=== PATIENT | male | born 1965 | race Caucasian/White ===

== ENCOUNTER 2018-10-10 21:51 | Observation (INO) | payer OTHER | END 2018-10-11 14:00 | disposition home or self-care (01) | LOC: MED SURG 10-11 02:04 → ED 21:51 ==

== ENCOUNTER 2022-05-07 05:52 | Day surgery (SDC) | payer OTHER ==
[2022-05-07] MEDS ORDERED: Lactated Ringers 1,000 ML IV SCH (06:30)
[2022-05-07] MEDS ORDERED: DIPRIVAN 200 MG/20 ML IV ONE ×3 (07:53→08:18)
[2022-05-07] MEDS ORDERED: Xylocaine-Mpf 2% 5 Ml Vial ONE (07:53)
--- NOTE | 2022-05-07 08:51 | OP ---
SURGERY DATE/TIME: 05/07/2022 0758 PREOPERATIVE DIAGNOSES: 1) Screening colon exam and vomiting blood. 2) Screening colon exam. 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 2) Normal colon. PROCEDURES: 1) Esophagogastroduodenoscopy. 2) Colonoscopy. SURGEON: Dr. Scott Calero. ANESTHESIA: Medications were given by the anesthesia department. HISTORY: The patient is a 57-year-old white male patient who presents for a screening colonoscopy. The patient reports that during his prep however he got nauseated and started vomiting. He reports towards the end of the vomiting he vomited what looked like blood. He also reports it looking like coffee ground emesis material coming out his bottom as well towards the end of the prep. The patient was felt the need to have endoscopic evaluation for screening colon exam but due to the presence of his vomiting of blood the patient was felt the need to have endoscopic evaluation upper GI tract as well. The patient was appraised of the risks of the procedure including the risk of perforation, phlebitis, untoward reaction to medication, bleeding and missed lesions. The patient verbalized his understanding and desired to have the procedure performed. DESCRIPTION OF PROCEDURE: The patient was given the medications by the anesthesia department. He had continuous pulse oximetry, ECG monitoring and intermittent blood pressure monitoring. He was placed in the left lateral decubitus position. A bite block was placed. The flexible Olympus gastroscope was used to intubate the oropharynx. A view of the larynx was obtained and was normal. The scope was easily introduced in the esophagus which appeared to be normal to the gastroesophageal junction where there appeared to be a small area of what was most likely a Solange-Montes tear without any active bleeding at this time. The scope was passed into the stomach where normal gastric rugal folds were seen and these distended nicely with insufflation of air. The scope was passed along the greater curvature of the stomach to the antrum. The pylorus encountered and intubated. The duodenum inspected and found to be normal. The scope is withdrawn towards the stomach. Again, retroflex view of the lesser curvature, fundus and cardia regions of the stomach appeared to be normal. The scope was then withdrawn from the patient. Careful inspection of the gastroesophageal junction again revealed no bleeding and attempts were made at photographing what appeared to be a Solange-Montes tear. The scope was then removed from the patient. Next, a digital rectal examination was performed and revealed normal anal sphincter tone and no masses. The flexible Olympus pediatric colonoscope was used to intubate the rectum. A view of the colon was developed sequentially to the cecum. Upon insertion and withdrawal, including a retroflex view in the rectum, no mucosal lesions were noted. There was noted to be large amounts of bubbles throughout the colon which we used simethicone with water mixed to improve our observation and there appeared to be noted digested blood in small amounts noted through the colon. The patient was taken back to the recovery room in good condition.
[2022-05-07 09:25] VITALS: PULSE 60
[2022-05-07 09:27] VITALS: BP 126/75; O2SAT 98
== END 2022-05-07 09:20 | disposition home or self-care (01) ==
LOC: SDC 05:52
PROVIDERS: ATTEND Family Medicine
DX: Z12.11 Encounter for screening for malignant neoplasm of colon (principal); K22.6 Gastro-esophageal laceration-hemorrhage syndrome
CPT/HCPCS: J2704

== ENCOUNTER 2024-03-15 20:40 | Emergency (ER) | payer OTHER ==
[2024-03-15 20:52] VITALS: TEMP 98.6
[2024-03-15] MEDS ORDERED: DUONEB 0.5-3 MG/3 ml Neb IH ONE (21:05)
[2024-03-15 21:10] LABS: Absolute Neutrophil Ct (ANC) 5.54 x10^3/uL (1.78-5.38); BASOPHIL % 0.5 % (0.2-1.2); Basophil (Absolute #) 0.04 x10^3/uL (0.01-0.08); Eosinophil % 5.3 % (0.8-7.0); Eosinophil (Absolute #) 0.43 x10^3/uL (0.04-0.54); Hematocrit 46.1 % (40.1-51.0); Hemoglobin 15.5 g/dL (13.7-17.5); IMMATURE GRAN # 0.02 x10^3u/L (0.001-0.031); IMMATURE GRAN % 0.2 % (0.001-0.429); Lymphocyte (Absolute #) 1.34 x10^3/uL (1.32-3.57); Lymphocytes % 16.5 % (21.8-53.1); Mean Cell Volume 95.8 fL (79.0-92.2); Mean Corpuscular Hemoglobin 32.2 pg (25.7-32.2); Mean Corpuscular Hgb Concent. 33.6 g/dL (32.3-36.5); Mean Platelet Volume 10.1 fL (9.4-12.4); Monocyte (Absolute #) 0.73 x10^3/uL (0.30-0.82); Neutrophil % 68.5 % (34.0-67.9); Platelet Count 210 x10^3/uL (163-337); Red Blood Count 4.81 x10^6/uL (4.63-6.08); Red Cell Distribution Width 11.9 % (11.6-14.4); White Blood Count 8.1 x10^3/uL (4.23-9.07)
[2024-03-15] MEDS: DUONEB 0.5-3 MG/3 ml Neb IH ONE (21:20)
[2024-03-15 21:34] LABS: ALBUMIN 4.6 g/dL (3.5-5.0); ANION GAP 14.2 MEQ/L (5-15); BILIRUBIN,TOTAL 0.5 mg/dL (0.2-1.3); Calcium 10.3 mg/dL (8.4-10.2); Creatinine 1 0.93 mg/dL (0.66-1.25); EST GLOMERULAR FILTRATION RATE 96.4 ML/MIN; Total Protein 7.7 g/dL (6.3-8.2)
--- NOTE | 2024-03-15 22:50 | ERPHSYRPT ---
- History of Present Illness Time Seen by Provider: 03/15/24 20:41 Source: patient Exam Limitations: no limitations Patient Subjective Stated Complaint: shortness of breath since tuesday that has gotten worse. pt recently got discharged from [facility] after getting a new pacemaker replaced. Triage Nursing Assessment: pt ambulatory to bed by sef with steady gait, skin pwd, pt alert and oriented x3, pt c/o shortness of breath after getting discharged from the hospital on tuesday, pt states the shortness of breath has gotten worse, upon arrival pt had slight labored breathing but breathing returned to normal during triage, lung sounds clear and equal. incision site for pacemaker replacement clean and dry with no signs of reddness, afebrile, pt c/o sore throat when patient inhales. Physician History: 58 years old male with history of sick sinus syndrome with pacemaker which is replaced 3 days ago at [facility] by Dr. Spencer presented to the ER with increasing shortness of breath since discharge and substernal chest pain. Patient reports over the course of couple of days it has been getting worse and he cannot lie flat because of moderate to severe pain in the center of the chest and some shortness of breath especially hurts to take a deep breath. Shortness of breath also gets worse with exertion. Has minimal nonproductive cough. Denies any fever or chills. Allergies/Adverse Reactions: No Known Drug Allergies Allergy (Verified 03/15/24 20:42) Home Medications: No Reportable Medications [No Reported Medications] 03/15/24 [History] Hx Tetanus, Diphtheria Vaccination/Date Given: Yes Hx Influenza Vaccination/Date Given: No Hx Pneumococcal Vaccination/Date Given: No Travel Risk - International Travel Have you traveled outside of the country in past 3 weeks: No - Emerging Infectious Disease Are you exhibiting symptoms associated with any current EIDs: Yes Symptoms: Shortness of Breath - Review of Systems Constitutional: No Symptoms Eyes: No Symptoms Ears, Nose, & Throat: No Symptoms Respiratory: Cough, Dyspnea, Dyspnea on Exertion ([place]) Cardiac: Chest Pain Abdominal/Gastrointestinal: No Symptoms Genitourinary Symptoms: No Symptoms Musculoskeletal: No Symptoms Skin: No Symptoms Neurological: No Symptoms Endocrine: No Symptoms Hematologic/Lymphatic: No Symptoms Immunological/Allergic: No Symptoms - Past Medical History Pertinent Past Medical History: Yes Neurological History: No Pertinent History ENT History: Cataracts Cardiac History: Arrhythmia Respiratory History: Other Endocrine Medical History: No Pertinent History Musculoskeletal History: No Pertinent History GI Medical History: GERD History: No Pertinent History Psycho-Social History: No Pertinent History Male Reproductive Disorders: No Pertinent History Other Medical History: hx sarcoidosis, pacemaker - Past Surgical History Past Surgical History: Yes Neuro Surgical History: No Pertinent History Cardiac: Pacemaker Respiratory: Other Gastrointestinal: Appendectomy Genitourinary: No Pertinent History Musculoskeletal: No Pertinent History Male Surgical History: No Pertinent History Other Surgical History: lung bx- sacroidosis. left and right cataract. RK vision surgery - eye floaters removed. - Social History Smoking Status: Never smoker Exposure to second hand smoke: No Drug Use: none - Social Determinants of Health Will the patient participate in the screening: Declined to provide - Nursing Vital Signs Nursing Vital Signs: Initial Vital Signs Temperature 98.6 F 03/15/24 20:43 Pulse Rate 86 03/15/24 20:43 Respiratory Rate 22 03/15/24 20:43 Blood Pressure 130/91 03/15/24 20:43 O2 Sat by Pulse Oximetry 98 03/15/24 20:43 Pain Scale Pain Intensity 5 - Physical Exam General Appearance: no apparent distress, alert Eye Exam: PERRL/EOMI Ears, Nose, Throat Exam: hearing grossly normal, normal ENT inspection, normal pharynx Neck Exam: normal inspection, non-tender, supple, full range of motion Respiratory Exam: normal breath sounds, lungs clear Cardiovascular/Chest Exam: normal heart sounds, regular rate/rhythm Abdominal/Gastrointestinal Exam: soft, normal bowel sounds Extremity Exam: non-tender, normal range of motion Neurologic Exam: alert, oriented x 3, cooperative, waiter/waitress room service II-XII nml as tested Skin Exam: normal color SpO2 Interpretation: normal SpO2: 96 O2 Delivery: Room Air - Course EKG Interpreted by Me: RATE (75), Sinus Rhythm, NORMAL AXIS, NORMAL INTERVALS, NORMAL QRS Ordered Tests: Medication Summary Discontinued Medications Generic Name Dose Route Start Last Admin Trade Name Freq PRN Reason Stop Dose Admin Albuterol/Ipratropium 3 ml 03/15/24 20:59 03/15/24 21:20 Ipratropium/Albuterol Sulfate 3 Ml Ampul.Neb IH 03/15/24 21:00 3 ml STAT ONE Administration Albuterol/Ipratropium Confirm 03/15/24 21:05 Ipratropium/Albuterol Sulfate 3 Ml Ampul.Neb Administered 03/15/24 21:06 Dose 3 ml IH .STK-MED ONE Morphine Sulfate 4 mg 03/15/24 23:11 03/15/24 23:22 Morphine Sulfate 4 Mg/Ml Injection IV 03/15/24 23:12 Not Given STAT ONE Morphine Sulfate Confirm 03/15/24 23:17 Morphine Sulfate 4 Mg/Ml Injection Administered 03/15/24 23:18 Dose 4 mg .ROUTE .STK-MED ONE Ondansetron HCl 4 mg 03/15/24 23:11 03/15/24 23:22 Ondansetron Hcl 4 Mg/2 Ml Vial IV 03/15/24 23:12 Not Given STAT ONE Ondansetron HCl Confirm 03/15/24 23:16 Ondansetron Hcl 4 Mg/2 Ml Vial Administered 03/15/24 23:17 Dose 4 mg .ROUTE .STK-MED ONE Lab/Rad Data: Laboratory Result Diagrams 03/15/24 21:00 03/15/24 21:00 Laboratory Results 03/16/24 03/15/24 03/15/24 Range/Units 00:10 21:12 21:07 WBC (4.23-9.07) x10^3/uL RBC (4.63-6.08) x10^6/uL Hgb (13.7-17.5) g/dL Hct (40.1-51.0) % MCV (79.0-92.2) fL MCH (25.7-32.2) pg MCHC (32.3-36.5) g/dL RDW (11.6-14.4) % Plt Count (163-337) x10^3/uL MPV (9.4-12.4) fL Gran % (34.0-67.9) % Immature Gran % (Auto) (0.001-0.429) % Nucleat RBC Rel Count (0.00-0.2) % Eos # (Auto) (0.04-0.54) x10^3/uL Immature Gran # (Auto) (0.001-0.031) x10^3u/L Absolute Lymphs (auto) (1.32-3.57) x10^3/uL Absolute Monos (auto) (0.30-0.82) x10^3/uL Absolute Nucleated RBC (0.00-0.012) x10^3u/L Lymphocytes % (21.8-53.1) % Monocytes % (5.3-12.2) % Eosinophils % (0.8-7.0) % Basophils % (0.2-1.2) % Absolute Granulocytes (1.78-5.38) x10^3/uL Basophils # (0.01-0.08) x10^3/uL D-Dimer 1.45 H* (0.0-0.50) mg/L Sodium (135-145) mmol/L Potassium (3.5-5.1) mmol/L Chloride (98-107) mmol/L Carbon Dioxide (22-30) mmol/L Anion Gap (5-15) MEQ/L BUN (9-20) mg/dL Creatinine (0.66-1.25) mg/dL Estimated GFR ML/MIN Glucose (74-106) mg/dL Lactic Acid 1.8 (0.4-2.0) Calcium (8.4-10.2) mg/dL Magnesium (1.6-2.3) mg/dL Total Bilirubin (0.2-1.3) mg/dL AST (17-59) U/L ALT (0-50) U/L Alkaline Phosphatase (38-126) U/L Troponin I 0.061 H* (0.000-0.033) ng/mL NT-Pro-B Natriuret Pep (<300) pg/mL Serum Total Protein (6.3-8.2) g/dL Albumin (3.5-5.0) g/dL 03/15/24 03/15/24 03/15/24 Range/Units 21:00 21:00 21:00 WBC 8.1 (4.23-9.07) x10^3/uL RBC 4.81 (4.63-6.08) x10^6/uL Hgb 15.5 (13.7-17.5) g/dL Hct 46.1 (40.1-51.0) % MCV 95.8 H (79.0-92.2) fL MCH 32.2 (25.7-32.2) pg MCHC 33.6 (32.3-36.5) g/dL RDW 11.9 (11.6-14.4) % Plt Count 210 (163-337) x10^3/uL MPV 10.1 (9.4-12.4) fL Gran % 68.5 H (34.0-67.9) % Immature Gran % (Auto) 0.2 (0.001-0.429) % Nucleat RBC Rel Count 0.0 (0.00-0.2) % Eos # (Auto) 0.43 (0.04-0.54) x10^3/uL Immature Gran # (Auto) 0.02 (0.001-0.031) x10^3u/L Absolute Lymphs (auto) 1.34 (1.32-3.57) x10^3/uL Absolute Monos (auto) 0.73 (0.30-0.82) x10^3/uL Absolute Nucleated RBC 0.00 (0.00-0.012) x10^3u/L Lymphocytes % 16.5 L (21.8-53.1) % Monocytes % 9.0 (5.3-12.2) % Eosinophils % 5.3 (0.8-7.0) % Basophils % 0.5 (0.2-1.2) % Absolute Granulocytes 5.54 H (1.78-5.38) x10^3/uL Basophils # 0.04 (0.01-0.08) x10^3/uL D-Dimer (0.0-0.50) mg/L Sodium 140 (135-145) mmol/L Potassium 4.0 (3.5-5.1) mmol/L Chloride 101 (98-107) mmol/L Carbon Dioxide 29 (22-30) mmol/L Anion Gap 14.2 (5-15) MEQ/L BUN 16 (9-20) mg/dL Creatinine 0.93 (0.66-1.25) mg/dL Estimated GFR 96.4 ML/MIN Glucose 96 (74-106) mg/dL Lactic Acid (0.4-2.0) Calcium 10.3 H (8.4-10.2) mg/dL Magnesium 2.0 (1.6-2.3) mg/dL Total Bilirubin 0.50 (0.2-1.3) mg/dL AST 28 (17-59) U/L ALT 26 (0-50) U/L Alkaline Phosphatase 68 (38-126) U/L Troponin I 0.074 H* (0.000-0.033) ng/mL NT-Pro-B Natriuret Pep 265 (<300) pg/mL Serum Total Protein 7.7 (6.3-8.2) g/dL Albumin 4.6 (3.5-5.0) g/dL - Progress Progress: improved, re-examined Air Movement: good Progress Note: 03/15/24 22:59 58 years old with history of sick sinus syndrome had pacemaker replaced 3 days ago is evaluated for increasing shortness of breath and chest pain. EKG is normal sinus rhythm with no acute ischemic changes. He is given DuoNeb, mild improvement in his shortness of breath. Chest x-ray showed pacemaker implant with wires in place and small effusion/opacity in the left lower lobe reviewed by me followed by preliminary radiology read, official report is pending. No rmal white count, fairly unremarkable chemistries. Normal lactate but initial troponin of 0.074 which is the kind of expected from recent procedure. Has elevated D-dimer and CTA is currently pending. We have no EP cardiology services here at [facility], reviewed with primary facility at [facility] cardiology group. Discussed with Dyana GROSS for Dr. Baires at 10:55 PM, reviewed history, workup, recommended/agreed with transfer to hospitalist service after CTA. 03/16/24 01:17 CTA showed bilateral small pleural effusion, borderline cardiomegaly with minimal pericardial effusion. We have called back [facility] and was discussed with hospitalist about transfer. 03/16/24 01:[address] Pacheco at [facility], reviewed history, workup and agreed with transfer. Plan discussed with patient and family and they are okay with it. Antibiotics given: No Counseled pt/family regarding: lab results, diagnosis, need for follow-up, rad results Medical Desision Making - Discussion of managment Care discussed with:: specialist Reviewed:: Test results Agreed on:: Treatment plan Will see patient: in hospital - Diagnostic Testing Diagnostic test were ordered, analyzed, and reviewed by me: Yes Radiological Interpretation: Interpreted by me, Reviewed by me, Teleradiologist Report - Risk of complications The pt has a mod risk of morbidity or mortality based on: Need for prescription drug management The pt has a high risk of morbidity or mortality based on: Decision regarding hospitilization or escalation of hosp level of care - Departure Departure Disposition: Transfer Clinical Impression: Pericardial effusion, Pleural effusion, Chest pain, Dyspnea Condition: Stable Critical Care Time: No Referrals: IFEOMA OLIVIER [Primary Care Provider] - Follow up/PCP as directed
[2024-03-15] MEDS ORDERED: Zofran 4 MG/2 ML VIAL ONE (23:16)
[2024-03-15] MEDS ORDERED: MORPHINE SULFATE 4 MG INJ ONE (23:17)
[2024-03-15] MEDS: Zofran 4 MG/2 ML VIAL IV ONE (23:22)
[2024-03-15] MEDS: MORPHINE SULFATE 4 MG INJ IV ONE (23:22)
--- NOTE | 2024-03-16 01:03 | XRAY ---
CLINICAL HISTORY: chest pain, sob COMPARISON: CT images dated 10/10/2018 TECHNIQUE: Contiguous 3.[address] images of the chest were acquired with administration of intravenous contrast. 80cc of Isovue 370mg given. Coronal and sagittal reconstructions were obtained._was administered for post contrast images. One of the following dose reduction techniques were utilized for this exam: Automated exposure control, adjustment of the mA and/or kV according to patient size, and use of iterative reconstruction. CTDI: 31.57mGy, DLP: 1196.65mGy-cm. FINDINGS: Lungs: A thin atelectatic band in the posterior basal segment of the right lower lobe. Bilateral basal congestive changes. Bilateral minimal pleural effusions. Lungs are clear with no evidence of consolidation, collapse, or focal lesions. No ground-glass opacities or interstitial changes. No pleural effusion or pleural thickening. Mediastinum: No mediastinal mass or abnormal lymphadenopathy. Normal appearance of the thymus. Hilar Structures: Normal size and configuration, no enlargement. Heart and Great Vessels: Borderline enlarged cardiac size with minimal pericardial effusion A cardiac pacemaker device is seen Normal caliber and course of the thoracic aorta and other great vessels. No significant atherosclerosis or aneurysm. Normal enhancement of the great vessels post-contrast. Pulmonary Arteries: No evidence of pulmonary embolism. Normal size and course of the pulmonary arteries. Esophagus: Normal course and caliber. No masses or dilatation. Bones: No fractures or lytic/sclerotic lesions. Normal bone density and alignment. No evidence of rib fractures. Degenerative changes in the visualized spine. Chest Wall: No masses or soft tissue abnormalities. Upper Abdomen: Visualized portions of the liver, spleen, pancreas, adrenal glands, and kidneys are normal. No abnormalities were noted in the visualized upper abdominal organs. Thyroid: Normal size and morphology. No nodules or masses. IMPRESSION: 1. Borderline cardiomegaly with minimal pericardial effusion. Interval new finding. 2. Bilateral streak of pleural effusions with bilateral basal congestive and atelectatic changes. Interval new 3. No interval evidence of pulmonary embolism in the current study. Electronically Signed by: Tyron Lo MD. (03/16/2024 00:58:17 EDT)
[2024-03-16 03:03] VITALS: BP 128/69; PULSE 82; RESP 27
--- NOTE | 2024-03-16 08:43 | XRAY ---
Indication: Short of breath. Comparison: November 20, 2019 Portable chest less inflated with new minimal left base infiltrate/atelectasis/effusion. Remaining heart and lungs unremarkable again with left pacemaker. Bony thorax intact with minimal degenerative changes.
[2024-03-22 17:47] VITALS: O2SAT 96
== END 2024-03-16 03:14 | disposition short-term general hospital (02) ==
LOC: ED 20:40
DX: I31.39 Other pericardial effusion (noninflammatory) (principal); J90 Pleural effusion, not elsewhere classified; R07.9 Chest pain, unspecified; R06.00 Dyspnea, unspecified
CPT/HCPCS: 36000; 36415; 71045; 71260; 80053; 83605; 83735; 83880; 84484; 85025; 85379; 93005; 93041; 94640; 99285; J2270; J2405; A9270-GY